=== PATIENT | female | born 1955 | race Caucasian/White ===

== ENCOUNTER 2017-06-07 11:24 | Inpatient (IN) | payer OTHER ==
[~2017-06-07] VITALS: Ht 160 cm; Wt 77.1 kg
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
[2017-06-07] MEDS ORDERED: HYDROCODONE/APAP 10/325MG 1 EA TABLET PO ONE (17:30)
[2017-06-07] MEDS ORDERED: ONDANSETRON 4 MG TAB.RAPDIS SL ONE (17:30)
[2017-06-07] MEDS ORDERED: ONDANSETRON 4 MG TAB.RAPDIS ONE (18:24)
[2017-06-07] MEDS ORDERED: HYDROCODONE/APAP 10/325MG 1 EA TABLET ONE (18:24)
--- NOTE | 2017-06-07 19:07 | NUR ---
DR. POE HAS BEEN PAGED
[2017-06-07 19:24] LABS: BASOPHILS % (AUTO) 0.6 % (0.0-2.0); EOSINOPHILS # (AUTO) 0.2 /CMM (0.0-0.7); HEMATOCRIT 45 % (33-45); HEMOGLOBIN 14.8 g/dL (11.5-14.8); LYMPHOCYTES # (AUTO) 3.1 /CMM (0.8-4.8); LYMPHOCYTES % (AUTO) 39.7 % (20.0-44.0); MEAN CORPUSCULAR HEMOGLOBIN 30 PG (26.0-33.0); MEAN CORPUSCULAR HGB CONC 33 g/dl (31.0-36.0); MEAN CORPUSCULAR VOLUME 90 fL (82-100); MONOCYTES # (AUTO) 0.5 /CMM (0.1-1.30); MONOCYTES % (AUTO) 6.8 % (2.0-12.0); NEUTROPHILS # (AUTO) 3.9 /CMM (1.8-8.9); NEUTROPHILS % (AUTO) 49.9 % (43.0-81.0); PLATELET COUNT (AUTO) 235 /CMM (150-450); RDW COEFFICIENT OF VARIATION 12.2 (11.5-15.0); RED BLOOD CELL COUNT(AUTO) 4.96 MIL/uL (4.0-5.2); WHITE BLOOD COUNT (AUTO) 7.7 K/uL (4.3-11.0)
[2017-06-07] MEDS ORDERED: ENOXAPARIN SODIUM 60 MG/0.6 ML DISP.SYRIN SQ ONE (19:30)
[2017-06-07 19:31] LABS: CALCIUM, SERUM 9.6 mg/dL (8.5-10.1); CREATININE 0.8 mg/dL (0.6-1.3); POTASSIUM 3.6 mmol/L (3.5-5.1)
[2017-06-07 19:36] LABS: INR 0.98 (0.87-1.13); PROTHROMBIN TIME 10.2 SECS (9.5-12.7)
[2017-06-07] MEDS ORDERED: ENOXAPARIN SODIUM 80 MG/0.8 ML DISP.SYRIN SQ ONE ×2 (19:43→20:00)
--- NOTE | 2017-06-07 19:50 | NUR ---
XRAY AT BS
[2017-06-07 19:53] LABS: ALANINE AMINOTRANSFERASE 30 U/L (12-78); ALBUMIN 4.2 g/dL (3.4-5.0); ALKALINE PHOSPHATASE 64 U/L (46-116); ASPARTATE AMINOTRANSFERASE 22 U/L (15-37); BILIRUBIN,DIRECT 0.1 mg/dL (0.0-0.2); BILIRUBIN,TOTAL 0.3 mg/dL (0.2-1.0); TOTAL PROTEIN, SERUM 7.9 g/dL (6.4-8.2)
--- NOTE | 2017-06-07 20:00 | NUR ---
EKG AT BS
[2017-06-07 20:03] LABS: TROPONIN I < 0.017 ng/mL (0.00-0.056)
--- NOTE | 2017-06-07 20:03 | NUR ---
Patient is resting comfortably in bed with eyes closed. Easily aroused. VSS
--- NOTE | 2017-06-07 21:30 | NUR ---
RN NOTES RECEIVED PATIENT FROM [facility]. PATIENT INQUIRED TO NURSE WITH REGARDS TO HER ROUTINE MEDICATIONS AND PAIN MEDICATION THE PATIENT'S HX INCLUDES CHRONIC BACK PAIN AND FIBROMYALGIA. REVIEWED PATIENT'S CHART AND FOLLOWED UP WITH ER WITH REGARDS TO THE PATIENT'S SNF RECORDS INCLUDING MEDICATION RECORDS. PER ER NURSE, THERE WAS NO PACKET THAT CAME WITH THE PATIENT, ONLY FACESHEET AND POLST. ATTEMPTED TO CALL [facility], NO ANSWER. SPOKE WITH PATIENT AND ASKED THE PATIENT IF SHE IS ABLE TO RECALL HER MEDICATIONS. PER PATIENT SHE IS TAKING GABAPENTIN AND LYRICA, UNKNOWN DOSE AND FREQUENCY. ALSO TAKING NORCO 10/325 Q4H PRN, MELATONIN 1MG HS, XANAX 1MG TID. PATIENT UNABLE TO RECALL OTHER MEDS. NOTIFIED DR. DEEPIKA MD TO PLACE ORDERS. Addendum: 06/08/17 at 0403 by SHERRIE NUNEZ RN WRONG TIME DOCUMENTED. CORRECTED DATE/TIME IS 06/07/17 AT 2230.
[2017-06-07 22:08] VITALS: BP 130/82
--- NOTE | 2017-06-07 22:08 | NUR ---
MOBILE SECURITY SPECIALIST NOTES PT RECEIVED FROM ER. PT C/O FOR PAIN IN ROBERT LEGS 03/13 PT MEDICATED IN ER. BLE REDNESS AND SWELLING NOTED. ROBERT LEGS COLD TO TOUCH. C/O OF PAIN TO TOUCH. PT POSITIVE FOR DVT ON L LEG. 22G IV IN L HAND ON SL. SKIN ASSESSMENT DONE. ORIENTED PT TO UNIT. PT IS RESTING IN BED ALL NEEDS ATTENDED. CALL LIGHT WITHIN REACH. WILL FOLLOW UP FOR ADMISSION ORDERS.
[2017-06-07] MEDS ORDERED: MELA1TAB15 PO (23:27)
[2017-06-07] MEDS ORDERED: ALPR1TAB2 PO (23:27)
[2017-06-07] MEDS ORDERED: HYDR-548 PO (23:27)
[2017-06-08] MEDS ORDERED: MAGNESIUM HYDROXIDE 30 ML UDC PO PRN
[2017-06-08] MEDS ORDERED: Medication Not On Formulary EA (Melatonin/Pyridoxine Hcl (Melatonin 1 Mg Tablet) 1 EACH) PO PRN
[2017-06-08] MEDS ORDERED: ONDANSETRON HCL/PF 4 MG/2 ML VIAL IVP PRN
[2017-06-08] MEDS ORDERED: ACETAMINOPHEN 325 MG TABLET PO PRN
[2017-06-08] MEDS ORDERED: ZOLPIDEM TARTRATE 5 MG TABLET PO PRN
[2017-06-08] MEDS ORDERED: HYDROCODONE/APAP 10/325MG 1 EA TABLET ONE (00:04)
[2017-06-08] MEDS ORDERED: ALPRAZOLAM 1 MG TABLET ONE (00:04)
[2017-06-08] MEDS: ALPRAZOLAM 1 MG TABLET PO SCH ×4 (00:16→17:48)
[2017-06-08] MEDS: HYDROCODONE/APAP 10/325MG 1 EA TABLET PO PRN ×4 (00:16→19:09)
[2017-06-08 04:00] VITALS: BP 111/64
[2017-06-08] MEDS ORDERED: MAGNESIUM CITRATE 296 ML BOTTLE PO PRN (07:00)
[2017-06-08] MEDS ORDERED: MAGNESIUM CITRATE 296 ML BOTTLE PO ONE (07:00)
--- NOTE | 2017-06-08 07:26 | NUR ---
RN CLOSING NOTES PT,NO ACUTE CHANGE IN CONDITION OVER NIGHT. ALL NEED ANTICIPATED AND MET. ALL DUE MEDS GIVEN AM LABS DRAWN. SAFETY AND COMFORT ENSURED, WILL ENDORSED.
[2017-06-08 07:40] LABS: BASOPHILS % (AUTO) 0.5 % (0.0-2.0); EOSINOPHILS # (AUTO) 0.2 /CMM (0.0-0.7); EOSINOPHILS % (AUTO) 2.3 % (0.0-6.0); HEMATOCRIT 42 % (33-45); HEMOGLOBIN 14.4 g/dL (11.5-14.8); LYMPHOCYTES # (AUTO) 2.9 /CMM (0.8-4.8); LYMPHOCYTES % (AUTO) 43.9 % (20.0-44.0); MEAN CORPUSCULAR HEMOGLOBIN 31 PG (26.0-33.0); MEAN CORPUSCULAR HGB CONC 34 g/dl (31.0-36.0); MEAN CORPUSCULAR VOLUME 90 fL (82-100); MONOCYTES # (AUTO) 0.5 /CMM (0.1-1.30); MONOCYTES % (AUTO) 7.4 % (2.0-12.0); NEUTROPHILS # (AUTO) 3.1 /CMM (1.8-8.9); NEUTROPHILS % (AUTO) 45.9 % (43.0-81.0); PLATELET COUNT (AUTO) 192 /CMM (150-450); RDW COEFFICIENT OF VARIATION 12.8 (11.5-15.0); RED BLOOD CELL COUNT(AUTO) 4.67 MIL/uL (4.0-5.2); WHITE BLOOD COUNT (AUTO) 6.7 K/uL (4.3-11.0)
[2017-06-08 08:00] VITALS: BP 119/67
[2017-06-08 08:06] LABS: CALCIUM, SERUM 9.6 mg/dL (8.5-10.1); CREATININE 0.8 mg/dL (0.6-1.3); PHOSPHORUS 4.1 mg/dL (2.5-4.9); POTASSIUM 3.6 mmol/L (3.5-5.1)
[2017-06-08] MEDS: POLYETHYLENE GLYCOL 3350 17 GM POWD.PACK PO SCH (08:15)
[2017-06-08] MEDS: PANTOPRAZOLE 40 MG TABLET.DR PO SCH (08:15)
[2017-06-08] MEDS: ENOXAPARIN SODIUM 80 MG/0.8 ML DISP.SYRIN SQ SCH ×2 (08:22→21:34)
[2017-06-08 08:28] LABS: THYROID STIMULATING HORMONE 1.816 uIU/mL (0.358-3.74)
[2017-06-08] MEDS: PREGABALIN 25 MG CAPSULE PO SCH ×2 (15:10→19:07)
[2017-06-08] MEDS: CYCLOBENZAPRINE 10 MG TABLET PO PRN ×2 (15:11→19:11)
[2017-06-08 16:00] VITALS: BP 128/75
--- NOTE | 2017-06-08 19:19 | NUR ---
RN NOTE PT CLAIMS SHE USED TO TAKE GAPAENTIN 300 MG TID, WANT THIS MEDICATION TO BE CONTINUED INSTEAD OF FLEXERIL.
[2017-06-08 20:00] VITALS: BP 121/73
[2017-06-08] MEDS: DOCUSATE SODIUM LIQ 100 MG/10 ML UDC NG SCH (21:34)
[2017-06-09] MEDS: HYDROCODONE/APAP 10/325MG 1 EA TABLET PO PRN ×3 (00:41→15:28)
[2017-06-09 04:00] VITALS: BP 110/63
[2017-06-09] MEDS: PANTOPRAZOLE 40 MG TABLET.DR PO SCH (06:27)
--- NOTE | 2017-06-09 07:00 | NUR ---
RN NOTES RECEIVED PT ON BED, A/Ox4, RESPIRATION EVEN AND UNLABORED, NO SOB NOTED, L HAND IV G 22 SITE CDI, L LEG WARM TO TOUCH , SR UP x3, CALL LIGHT WITHIN EASY REACH, BED LOCKED AND IN LOWEST POSITION, CONTINUE TO MONITOR.
[2017-06-09 07:45] LABS: BASOPHILS % (AUTO) 0.6 % (0.0-2.0); EOSINOPHILS # (AUTO) 0.1 /CMM (0.0-0.7); EOSINOPHILS % (AUTO) 2.3 % (0.0-6.0); HEMATOCRIT 41 % (33-45); HEMOGLOBIN 13.6 g/dL (11.5-14.8); LYMPHOCYTES # (AUTO) 2.3 /CMM (0.8-4.8); LYMPHOCYTES % (AUTO) 47.6 % (20.0-44.0); MEAN CORPUSCULAR HEMOGLOBIN 30 PG (26.0-33.0); MEAN CORPUSCULAR HGB CONC 34 g/dl (31.0-36.0); MEAN CORPUSCULAR VOLUME 90 fL (82-100); MONOCYTES # (AUTO) 0.3 /CMM (0.1-1.30); MONOCYTES % (AUTO) 6.9 % (2.0-12.0); NEUTROPHILS # (AUTO) 2.1 /CMM (1.8-8.9); NEUTROPHILS % (AUTO) 42.6 % (43.0-81.0); PLATELET COUNT (AUTO) 167 /CMM (150-450); RDW COEFFICIENT OF VARIATION 12.7 (11.5-15.0); WHITE BLOOD COUNT (AUTO) 4.8 K/uL (4.3-11.0)
[2017-06-09 07:53] LABS: CALCIUM, SERUM 9.4 mg/dL (8.5-10.1); CREATININE 0.9 mg/dL (0.6-1.3); POTASSIUM 3.6 mmol/L (3.5-5.1)
[2017-06-09 08:00] VITALS: BP 111/65
[2017-06-09] MEDS: POLYETHYLENE GLYCOL 3350 17 GM POWD.PACK PO SCH (08:20)
[2017-06-09] MEDS: ENOXAPARIN SODIUM 80 MG/0.8 ML DISP.SYRIN SQ SCH ×2 (08:21→21:07)
[2017-06-09] MEDS: ALPRAZOLAM 1 MG TABLET PO SCH ×3 (08:21→16:47)
[2017-06-09] MEDS: PREGABALIN 25 MG CAPSULE PO SCH ×2 (08:22→16:46)
--- NOTE | 2017-06-09 13:00 | NUR ---
RN NOTES PT STABLE , BMX1 AT THIS TIME , PT ON BED REST , NO DISTRESS NOTED .
[2017-06-09] MEDS: CYCLOBENZAPRINE 10 MG TABLET PO PRN (15:29)
[2017-06-09] MEDS: Z GUARD REMEDY 4 OZ OINT TP SCH (15:38)
[2017-06-09 16:00] VITALS: BP 113/67
--- NOTE | 2017-06-09 18:35 | NUR ---
RN NOTES RESPIRATION EVEN AND UNLABORED, ON RA , BMx1 AT THIS TIME , L HAND IV SITE CDI, SR UP x3, CALL LIGHT WITHIN EASY REACH, WILL ENDORSE TO GOLF PROFESSIONAL NURSE FOR NANDA .
[2017-06-09 20:00] VITALS: BP 103/69
--- NOTE | 2017-06-09 20:14 | NUR ---
RN INITIAL MS NOTES RECEIVED PT ON BED, A/Ox4, RESPIRATION EVEN AND UNLABORED, NO SOB NOTED, L HAND IV G 22 SITE CDI, L LEG WARM TO TOUCH , SR UP x3, CALL LIGHT WITHIN EASY REACH, BED LOCKED AND IN LOWEST POSITION, CONTINUE TO MONITOR.
[2017-06-09] MEDS: DOCUSATE SODIUM LIQ 100 MG/10 ML UDC NG SCH (21:00)
[2017-06-10 04:44] VITALS: BP 125/70
--- NOTE | 2017-06-10 06:20 | NUR ---
RN CLOSING MS NOTES ENDORSED PT ON BED, A/Ox4, RESPIRATION EVEN AND UNLABORED, NO SOB NOTED, L HAND IV G 22 SITE CDI, L LEG WARM TO TOUCH , SR UP x3, CALL LIGHT WITHIN EASY REACH, BED LOCKED AND IN LOWEST POSITION, CONTINUE TO MONITOR.
[2017-06-10 07:36] LABS: BASOPHILS % (AUTO) 0.3 % (0.0-2.0); EOSINOPHILS # (AUTO) 0.1 /CMM (0.0-0.7); EOSINOPHILS % (AUTO) 2.6 % (0.0-6.0); HEMATOCRIT 41 % (33-45); HEMOGLOBIN 13.8 g/dL (11.5-14.8); LYMPHOCYTES # (AUTO) 2.5 /CMM (0.8-4.8); LYMPHOCYTES % (AUTO) 42.7 % (20.0-44.0); MEAN CORPUSCULAR HEMOGLOBIN 31 PG (26.0-33.0); MEAN CORPUSCULAR HGB CONC 34 g/dl (31.0-36.0); MEAN CORPUSCULAR VOLUME 91 fL (82-100); MONOCYTES # (AUTO) 0.4 /CMM (0.1-1.30); MONOCYTES % (AUTO) 6.9 % (2.0-12.0); NEUTROPHILS # (AUTO) 2.8 /CMM (1.8-8.9); NEUTROPHILS % (AUTO) 47.5 % (43.0-81.0); PLATELET COUNT (AUTO) 170 /CMM (150-450); RDW COEFFICIENT OF VARIATION 12.8 (11.5-15.0); RED BLOOD CELL COUNT(AUTO) 4.47 MIL/uL (4.0-5.2); WHITE BLOOD COUNT (AUTO) 5.8 K/uL (4.3-11.0)
[2017-06-10 07:52] LABS: CREATININE 0.7 mg/dL (0.6-1.3)
[2017-06-10 08:00] VITALS: BP_SYST 116; BP_SYST 125; BP_DIAS 66; BP_DIAS 75
[2017-06-10] MEDS: POLYETHYLENE GLYCOL 3350 17 GM POWD.PACK PO SCH (08:26)
[2017-06-10] MEDS: HYDROCODONE/APAP 10/325MG 1 EA TABLET PO PRN ×3 (08:27→16:54)
[2017-06-10] MEDS: ALPRAZOLAM 1 MG TABLET PO SCH ×3 (08:27→16:53)
[2017-06-10] MEDS: PANTOPRAZOLE 40 MG TABLET.DR PO SCH (08:27)
[2017-06-10] MEDS: ENOXAPARIN SODIUM 80 MG/0.8 ML DISP.SYRIN SQ SCH ×2 (08:28→21:40)
[2017-06-10] MEDS: PREGABALIN 25 MG CAPSULE PO SCH ×2 (08:30→16:54)
[2017-06-10] MEDS: Z GUARD REMEDY 4 OZ OINT TP SCH (08:31)
[2017-06-10] MEDS: CYCLOBENZAPRINE 10 MG TABLET PO PRN (15:39)
[2017-06-10 16:00] VITALS: BP_SYST 102; BP_SYST 120; BP_DIAS 69
--- NOTE | 2017-06-10 17:21 | NUR ---
MS RN NOTE 8572: Received patient, awake, A/Ox4. On room air tolerated. No c/o discomfort at this time. Able to turn and reposition with minimal assist. On diaper, kept clean, warm and dry. LH PIV intact. On Lovenox for DVT. Patient aware for the POC. No critical lab result from AM labs. 1715: No any significant changes noted. [place] PRN given as ordered x3 on this shift for c/o generalized pain, effective per patient.
[2017-06-10 20:00] VITALS: BP 123/66
[2017-06-10] MEDS: DOCUSATE SODIUM LIQ 100 MG/10 ML UDC NG SCH (21:38)
[2017-06-11 00:46] VITALS: BP 104/49
--- NOTE | 2017-06-11 07:10 | NUR ---
RN INITIAL NOTE PATIENT RECEIVED IN BED RESTING. EASILY AROUSED. ALERT AND ORIENTED, ABLE TO MAKE NEEDS KNOWN. RESPIRATIONS ARE EVEN AND UNLABORED. NO S/S OF RESPIRATORY DISTRESS OR SOB. SATING WELL ON ROOM AIR. SKIN IS WARM AND DRY TO TOUCH. IV SITE FLUSHED, PATENT. SAFETY PRECAUTIONS IMPLEMENTED, BED IN LOCKED, LOW POSITION WITH TWO SIDE RAILS UP. CALL LIGHT AND BELONGINGS WITHIN EASY REACH. WILL CONTINUE TO MONITOR.
[2017-06-11] MEDS: CYCLOBENZAPRINE 10 MG TABLET PO PRN ×2 (07:21→19:53)
[2017-06-11] MEDS: PANTOPRAZOLE 40 MG TABLET.DR PO SCH (07:21)
[2017-06-11] MEDS: HYDROCODONE/APAP 10/325MG 1 EA TABLET PO PRN ×3 (07:22→19:53)
[2017-06-11 08:00] VITALS: BP 142/78
[2017-06-11] MEDS: ENOXAPARIN SODIUM 80 MG/0.8 ML DISP.SYRIN SQ SCH ×3 (08:45→21:28)
[2017-06-11] MEDS: Z GUARD REMEDY 4 OZ OINT TP SCH (08:46)
[2017-06-11] MEDS: POLYETHYLENE GLYCOL 3350 17 GM POWD.PACK PO SCH (08:46)
[2017-06-11] MEDS: ALPRAZOLAM 1 MG TABLET PO SCH ×3 (08:47→15:54)
[2017-06-11] MEDS: PREGABALIN 25 MG CAPSULE PO SCH ×2 (08:47→15:54)
[2017-06-11 16:00] VITALS: BP 182/89
--- NOTE | 2017-06-11 18:48 | NUR ---
RN CLOSING NOTE CARRIED OUT ALL MD ORDERS. PATIENTS NEEDS ANTICIPATED. PATIENT KEPT CLEAN AND DRY. SAFETY PRECAUTIONS IN PLACE AT ALL TIMES. WILL GIVE REPORT TO PM RN FOR NANDA.
--- NOTE | 2017-06-11 19:20 | NUR ---
RN OPENING NOTES RECEIVED PATIENT AND REPORT TO MORNING SHIFT. PATIENT IS ALERT AND ORIENTED X 4. STABLE. SAFETY MEASURES PROVIDED. LISTENED TO PATIENT'S NEEDS. CALL LIGHT WITHIN REACH.
[2017-06-11 20:00] VITALS: BP 117/77
[2017-06-11] MEDS: DOCUSATE SODIUM LIQ 100 MG/10 ML UDC NG SCH (21:26)
[2017-06-12 04:00] VITALS: BP 124/76
--- NOTE | 2017-06-12 07:19 | NUR ---
RN CLOSING NTOES GIVEN REPORT AND CARE OF PATIENT TO NANCY SANZ. PATIENT IS STABLE.
--- NOTE | 2017-06-12 07:30 | NUR ---
RN OPENING NOTES RECEIVED PT. IN BED AWAKE, A&OX4. BREATHING UNLABORED, AND EVENLY ON ROOM AIR. NO S/S OF ACUTE DISTRESS. IV SITE IS INTACT AND PATENT ON LEFT HAND. BED IS IN LOWEST, AND LOCKED POSITION. INSTRUCTED PT. TO USE CALL LIGHT FOR ASSISTANCE, ALL NEEDS MET, AND WILL CONTINUE TO ASSESS.
[2017-06-12 08:00] VITALS: BP 125/73
[2017-06-12] MEDS: POLYETHYLENE GLYCOL 3350 17 GM POWD.PACK PO SCH (08:17)
[2017-06-12] MEDS: PANTOPRAZOLE 40 MG TABLET.DR PO SCH (08:17)
[2017-06-12] MEDS: PREGABALIN 25 MG CAPSULE PO SCH (08:17)
[2017-06-12] MEDS: ALPRAZOLAM 1 MG TABLET PO SCH ×2 (08:18→13:00)
[2017-06-12] MEDS: HYDROCODONE/APAP 10/325MG 1 EA TABLET PO PRN ×2 (08:19→13:01)
[2017-06-12] MEDS: ENOXAPARIN SODIUM 80 MG/0.8 ML DISP.SYRIN SQ SCH (08:23)
[2017-06-12] MEDS: Z GUARD REMEDY 4 OZ OINT TP SCH (08:25)
--- NOTE | 2017-06-12 13:00 | NUR ---
RN NOTES REPORT WAS GIVEN TO YVON MCGEE FROM [facility].
--- NOTE | 2017-06-12 13:46 | NUR ---
RN OPENING NOTES RECEIVED PT. IN BED AWAKE, A&OX4. BREATHING UNLABORED, AND EVENLY ON ROOM AIR. NO S/S OF ACUTE DISTRESS. IV SITE IS INTACT AND PATENT ON LEFT HAND. BED IS IN LOWEST, AND LOCKED POSITION. INSTRUCTED PT. TO USE CALL LIGHT FOR ASSISTANCE, ALL NEEDS MET, AND WILL CONTINUE TO ASSESS. Addendum: 06/12/17 at 1349 by NANCY HUMPHREYS RN RN OPENING NOTES IS AN ERROR.
--- NOTE | 2017-06-12 13:49 | NUR ---
IMMIGRATION MANAGER NOTE PT. WAS DISCHARGED IN MEDICALLY STABLE CONDITION AND TAKEN BY AMBULANCE TO [facility]. DISCHARGE INSTRUCTIONS, WITH EDUCATION WAS PROVIDE, PT. VERBALIZED UNDERSTANDING, AND DISCHARGE PAPERS WERE SIGNED. PICTURES TAKEN OF SKIN AND PLACED IN CHART. BELONGING LIST WAS CHECKED, AND SIGNED. IV AND ID BAND WAS REMOVED WITHOUT COMPLICATIONS. PT. WAS ASSISTED WITH GETTING DRESSED. ALL QUESTIONS ANSWERED.
== END 2017-06-12 13:33 | DRG 816 ==
LOC: EDBD 11:31 → ER 11:31 → MEDSG1 21:16
PROVIDERS: ADMIT Internal Medicine; ATTEND Internal Medicine
DX: T59.811A Toxic effect of smoke, accidental (unintentional), initial encounter (principal); J96.00 Acute respiratory failure, unspecified whether with hypoxia or hypercapnia; I82.412 Acute embolism and thrombosis of left femoral vein; D68.59 Other primary thrombophilia; J70.5 Respiratory conditions due to smoke inhalation; F11.20 Opioid dependence, uncomplicated; M79.7 Fibromyalgia; E03.9 Hypothyroidism, unspecified; I10 Essential (primary) hypertension; Z79.01 Long term (current) use of anticoagulants; Z68.30 Body mass index [BMI] 30.0-30.9, adult; Y92.129 Unspecified place in nursing home as the place of occurrence of the external cause; X08.8XXA Exposure to other specified smoke, fire and flames, initial encounter; F41.9 Anxiety disorder, unspecified; G89.4 Chronic pain syndrome; M51.16 Intervertebral disc disorders with radiculopathy, lumbar region; Z79.899 Other long term (current) drug therapy; K56.41 Fecal impaction; E66.9 Obesity, unspecified; F17.200 Nicotine dependence, unspecified, uncomplicated; M51.37 Other intervertebral disc degeneration, lumbosacral region; Z98.890 Other specified postprocedural states
CPT/HCPCS: 36415; 71010-TC; 80048-TC; 80061-TC; 80076-TC; 83735-TC; 84100-TC; 84443-TC; 84484-TC; 85025-TC; 85730-TC; 87081-TC; 93970-TC; A4606; J1650; Q0162; Z7610

== ENCOUNTER 2018-10-29 00:50 | Emergency (ER) | payer OTHER ==
[~2018-10-29] VITALS: Ht 160 cm; Wt 73.5 kg
[~2018-10-29 00:50] MED LIST: ALPR1TAB2 PO; HYDR-4354 PO; MELA1TAB15 PO
--- NOTE | 2018-10-29 01:30 | NUR ---
EVELYNAMBULIFE 760 FROM [facility], C/O BILAT LEG PAIN, SWELLING X 2 DAYS, PLACED ON ER BED 1, AWAITING TO BE SEEN BY ER MD TEJADA.
--- NOTE | 2018-10-29 02:59 | NUR ---
CHRISNZ CALLED SHERMAN 0430/0500. TRIP#[id number]
[2018-10-29] MEDS ORDERED: HYDROCODONE/APAP 5/325MG 1 EACH TABLET PO ONE (03:00)
[2018-10-29] MEDS ORDERED: HYDROCODONE/APAP 5/325MG 1 EACH TABLET ONE (03:09)
--- NOTE | 2018-10-29 04:29 | NUR ---
pt resting in bed asleep, easily arouseable, denies any pain, eta 0430.
--- NOTE | 2018-10-29 05:08 | NUR ---
pt picked up by [facility], paper work taken with pt.
[2018-10-29 05:10] VITALS: BP 120/69
[2018-11-22] MEDS ORDERED: GABA300C PO (13:28)
== END 2018-10-29 05:11 ==
LOC: ER 00:57
DX: G62.9 Polyneuropathy, unspecified (principal); M79.7 Fibromyalgia; I10 Essential (primary) hypertension; F41.9 Anxiety disorder, unspecified; E03.9 Hypothyroidism, unspecified; E78.00 Pure hypercholesterolemia, unspecified; Z98.890 Other specified postprocedural states; Z79.899 Other long term (current) drug therapy

== ENCOUNTER 2018-11-18 23:33 | Inpatient (IN) | payer OTHER ==
[~2018-11-18] VITALS: Ht 160 cm; Wt 86.2 kg
--- NOTE | 2018-11-18 23:50 | NUR ---
BIBPA FROM [facility], C/O BILAT LE EDEMA X 1 MONTH, USUALLY ABLE TO AMBULATE WITH WALKER, NOW NON AMBULATORY, VS STABLE, SEEN AND EVAL DONE BY ER MD ANDERSEN, ON BED 11, ORDERS ENTERED.
[2018-11-19] MEDS ORDERED: oxyCODONE/APAP (5/325 MG) 1 UDTAB TABLET PO ONE
[2018-11-19 00:24] LABS: BASOPHILS # (AUTO) 0.1 /CMM (0.0-0.2); BASOPHILS % (AUTO) 1.1 % (0.0-2.0); EOSINOPHILS % (AUTO) 2.8 % (0.0-6.0); HEMATOCRIT 42 % (33-45); HEMOGLOBIN 14.5 g/dL (11.5-14.8); LYMPHOCYTES # (AUTO) 3.1 /CMM (0.8-4.8); LYMPHOCYTES % (AUTO) 39.5 % (20.0-44.0); MEAN CORPUSCULAR HGB CONC 34 g/dl (31.0-36.0); MEAN CORPUSCULAR VOLUME 92 fL (82-100); MONOCYTES # (AUTO) 0.6 /CMM (0.1-1.30); MONOCYTES % (AUTO) 7.6 % (2.0-12.0); NEUTROPHILS # (AUTO) 3.9 /CMM (1.8-8.9); PLATELET COUNT (AUTO) 194 /CMM (150-450); RED BLOOD CELL COUNT(AUTO) 4.58 MIL/uL (4.0-5.2); WHITE BLOOD COUNT (AUTO) 7.9 K/uL (4.3-11.0)
[2018-11-19 00:35] LABS: D-DIMER 0.19 mg/L(FEU (0.17-0.50)
[2018-11-19 00:40] LABS: ALANINE AMINOTRANSFERASE 44 U/L (12-78); ALBUMIN 4.2 g/dL (3.4-5.0); ALKALINE PHOSPHATASE 78 U/L (46-116); ASPARTATE AMINOTRANSFERASE 26 U/L (15-37); B-TYPE NATRIURETIC PEPTIDE 44 PG/ML (0-125); BILIRUBIN,DIRECT 0.1 mg/dL (0.0-0.2); BILIRUBIN,TOTAL 0.3 mg/dL (0.2-1.0); CALCIUM, SERUM 9.5 mg/dL (8.5-10.1); CARBON DIOXIDE 29 mmol/L (21-32); CHLORIDE 103 mmol/L (98-107); GLUCOSE 109 mg/dL (74-106); POTASSIUM 3.8 mmol/L (3.5-5.1); SODIUM SERUM 141 mmol/L (136-145); TOTAL PROTEIN, SERUM 7.7 g/dL (6.4-8.2); UREA NITROGEN, BLOOD 24 mg/dL (7-18)
[2018-11-19] MEDS ORDERED: IOHEXOL-350 100 ML VIAL IV ONE (00:51)
[2018-11-19] MEDS ORDERED: CT SWABBABLE VALVE TRANS SET 1 EA INFUS.SET MC ONE (00:51)
[2018-11-19] MEDS ORDERED: IV NS 0.9% 250 ML IV ONE (00:52)
[2018-11-19] MEDS ORDERED: oxyCODONE/APAP (5/325 MG) 1 UDTAB TABLET ONE (00:56)
--- NOTE | 2018-11-19 01:13 | NUR ---
BILAT LE DUPLEX DONE AT BED SIDE.
--- NOTE | 2018-11-19 02:40 | NUR ---
PT TAKEN FOR CTA, BACK, AWAITING RESULTS.
[2018-11-19] MEDS ORDERED: ENOXAPARIN SODIUM 80 MG/0.8 ML DISP.SYRIN SQ ONE (03:30)
[2018-11-19] MEDS ORDERED: ENOXAPARIN SODIUM 60 MG/0.6 ML DISP.SYRIN SQ ONE (03:30)
--- NOTE | 2018-11-19 04:00 | NUR ---
PT ASLEEP ABLE TO WAKE UP, DENIES ANY PAIN OR SOB, PENDING ADMISSION.
[2018-11-19] MEDS ORDERED: IV NS 0.9% 1,000 ML IV PRN (06:23)
[2018-11-19] MEDS ORDERED: MAG HYDROX/AL HYDROX/SIMETH 30 ML UDC PO PRN (06:30)
[2018-11-19] MEDS ORDERED: ACETAMINOPHEN 325 MG TABLET PO PRN (06:30)
[2018-11-19] MEDS ORDERED: ZOLPIDEM TARTRATE 5 MG TABLET PO PRN (06:30)
[2018-11-19] MEDS ORDERED: MAGNESIUM HYDROXIDE 30 ML UDC PO PRN (06:30)
[2018-11-19] MEDS ORDERED: ONDANSETRON HCL/PF 4 MG/2 ML VIAL IVP PRN (06:30)
[2018-11-19] MEDS ORDERED: HYDROMORPHONE INJ 2 MG/ML DISP.SYRIN IV PRN (06:30)
[2018-11-19] MEDS ORDERED: Z GUARD REMEDY 2 OZ OINT TP PRN (06:30)
[2018-11-19 06:43] LABS: PHOSPHORUS 3.6 mg/dL (2.5-4.9)
--- NOTE | 2018-11-19 07:18 | NUR ---
REPORT GIVEN TO JAGRUTI SANZ.
[2018-11-19] MEDS ORDERED: OXYC-128 PO (07:31)
[2018-11-19] MEDS ORDERED: FENO145T GT (07:31)
[2018-11-19] MEDS ORDERED: NALO4SPR NS (07:31)
[2018-11-19] MEDS ORDERED: GABA-534 PO (07:31)
[2018-11-19] MEDS ORDERED: QUIN1TAB3 PO (07:31)
[2018-11-19] MEDS ORDERED: MELA3TAB PO (07:31)
[2018-11-19] MEDS ORDERED: ALBU0.633 IH (07:31)
[2018-11-19] MEDS ORDERED: ESCI20TA PO (07:31)
[2018-11-19] MEDS ORDERED: MULT-447 PO (07:31)
[2018-11-19] MEDS ORDERED: CALC1TAB91 PO (07:31)
[2018-11-19] MEDS ORDERED: ALPR1TAB2 PO (07:31)
[2018-11-19] MEDS ORDERED: LEVO25TA7 PO (07:31)
[2018-11-19] MEDS ORDERED: IBUP-1953 PO (07:31)
[2018-11-19] MEDS ORDERED: BACL5TAB PO (07:31)
[2018-11-19] MEDS ORDERED: PREG50CA PO (07:31)
[2018-11-19] MEDS ORDERED: BISA-79 PO (07:31)
[2018-11-19] MEDS ORDERED: CHOL200026 PO (07:31)
[2018-11-19] MEDS ORDERED: SENN-18 PO (07:31)
[2018-11-19] MEDS ORDERED: APIX5TAB PO (07:31)
[2018-11-19] MEDS: ALPRAZOLAM 1 MG TABLET PO SCH ×2 (08:47→16:56)
--- NOTE | 2018-11-19 08:50 | NUR ---
MS MICROCOMPUTER SUPPORT SPECIALIST NOTES RECEIVED PT TRANSPORTED VIA GURNEY BY 1 RN ASSIST. PT A/O X3-4. TOLERATING RA, WITH NO ACUTE RESPIRATORY DISTRESS. VS BP 115/79, BRADYCARDIC AT 48-53 BPM. PT DENIES CHEST PAIN. PT ALSO DENIES N/V AND ABDOMINAL DISCOMFORT. PT STATES SHE HAS PAIN ON BOTH LEGS, AND HAD PAIN MEDICINE HOURS AGO. BLE NON PITTING EDEMA NOTED. SKIN INTACT. PIV TO RFA G20, FLUSHED WITH NS, INTACT AND OPERATIONAL. ADMISSION INFOS AND HX PROVIDED BY PT. PT STATED SHE WAS AMBULATORY WITH WALKER BEFORE BUT FOR A WEEK AND A HALF STARTED HER SEVERE WEAKNESS ON BLE DUE TO SWELLING. HOB KEPT ELEVATED. PT KEPT COMFORTABLE, CLEAN AND DRY. CALL LIGHT AND FLUID KEPT WITHIN REACH. WILL CONTINUE PLAN OF CARE.
[2018-11-19] MEDS ORDERED: ALPRAZOLAM 1 MG TABLET PO SCH ×2 (09:00→17:00)
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
[2018-11-19] MEDS: HYDROCODONE/APAP 5/325MG 1 EACH TABLET PO PRN ×2 (11:58→17:12)
[2018-11-19] MEDS ORDERED: ENOXAPARIN SODIUM 80 MG/0.8 ML DISP.SYRIN SQ SCH (15:00)
[2018-11-19 16:00] VITALS: BP 103/74
[2018-11-19] MEDS ORDERED: SENNOSIDES 8.6 MG TABLET PO PRN (17:00)
[2018-11-19] MEDS ORDERED: BISACODYL (5 MG) 5 MG TABLET.DR PO PRN (17:00)
[2018-11-19] MEDS ORDERED: IBUPROFEN 400 MG TABLET PO PRN (17:00)
[2018-11-19] MEDS: BACLOFEN (10 MG) 10 MG TABLET PO SCH (17:45)
[2018-11-19] MEDS: CALCIUM CARB 250MG /VITAMIN D 1 UDTAB PO SCH (17:45)
[2018-11-19] MEDS: GABAPENTIN 300 MG CAPSULE PO SCH (17:45)
[2018-11-19] MEDS: PREGABALIN 25 MG CAPSULE PO SCH (17:45)
--- NOTE | 2018-11-19 18:28 | NUR ---
MS RN NOTES XANAX SCHEDULED AT 1700 WAS SCANNED AND GIVEN AT 1710. RN WASN'T ABLE TO SAVE IT DUE TO IT WAS DISCONTINUED AT 1711. PT TOOK XANAX SCHEDULED AT 1700 AT 1710. WILL ENDORSE TO INCOMING NIGHT NURSE.
--- NOTE | 2018-11-19 18:43 | NUR ---
MS RN CLOSING NOTES PT REMAINS RESTING IN BED. A/O X3-4. TOLERATING RA, WITH NO ACUTE RESPIRATORY DISTRESS. PT DENIES ANY PAIN OR DISCOMFORT AT THIS MOMENT. IVF NS AT 75ML/HR TO RFA G20, INTACT AND FLUID INFUSING WELL. PT ABLE TO MAKE NEEDS KNOWN. PROVIDED ALL CARE AND NEEDS ATTENDED. HOB KEPT ELEVATED. PT KEPT COMFORTABLE, CLEAN AND DRY. PT'S BED KEPT IN LOWEST, LOCKED POSITION WITH SR X2. CALL LIGHT AND FLUID KEPT WITHIN REACH. WILL ENDORSE TO INCOMING NIGHT NURSE TO NANDA.
--- NOTE | 2018-11-19 19:15 | NUR ---
MS RN NOTES RECEIVED PT IN BED AND AWAKE RESTING IN BED. A/O X4 AND ABLE TO MAKE NEEDS KNOWN. RESPIRATIONS EVEN AND UNLABORED WITH NO S/S OF ACUTE DISTRESS OR SOB NOTED. PT DENIES ANY PAIN OR DISCOMFORT AT THIS TIME. IVF NS AT 75ML/HR TO RFA G20, PATENT AND INTACT. SAFETY MEASURES IN PLACE WITH BED IN LOWEST LOCKED POSITION WITH SIDE RAILS UP X2. CALL LIGHT WITHIN REACH. WILL CONTINUE TO MONITOR.
[2018-11-19 20:00] VITALS: BP 109/62
[2018-11-19] MEDS: FENOFIBRATE NANOCRYS (145 MG) 145 MG TABLET PO SCH (21:37)
[2018-11-20] MEDS: oxyCODONE/APAP (5/325 MG) 1 UDTAB TABLET PO PRN ×3 (05:59→22:34)
[2018-11-20 07:08] LABS: BASOPHILS # (AUTO) 0.1 /CMM (0.0-0.2); BASOPHILS % (AUTO) 1.2 % (0.0-2.0); HEMATOCRIT 41 % (33-45); HEMOGLOBIN 14.1 g/dL (11.5-14.8); LYMPHOCYTES # (AUTO) 1.9 /CMM (0.8-4.8); LYMPHOCYTES % (AUTO) 40.1 % (20.0-44.0); MEAN CORPUSCULAR HGB CONC 34 g/dl (31.0-36.0); MEAN CORPUSCULAR VOLUME 92 fL (82-100); MONOCYTES # (AUTO) 0.3 /CMM (0.1-1.30); MONOCYTES % (AUTO) 6.6 % (2.0-12.0); NEUTROPHILS # (AUTO) 2.3 /CMM (1.8-8.9); NEUTROPHILS % (AUTO) 49.1 % (43.0-81.0); PLATELET COUNT (AUTO) 153 /CMM (150-450); RED BLOOD CELL COUNT(AUTO) 4.48 MIL/uL (4.0-5.2); WHITE BLOOD COUNT (AUTO) 4.8 K/uL (4.3-11.0)
[2018-11-20 07:47] LABS: ALBUMIN 3.7 g/dL (3.4-5.0); BILIRUBIN,TOTAL 0.4 mg/dL (0.2-1.0); CALCIUM, SERUM 9.5 mg/dL (8.5-10.1); CREATININE 0.8 mg/dL (0.6-1.3); POTASSIUM 3.7 mmol/L (3.5-5.1); TOTAL PROTEIN, SERUM 6.8 g/dL (6.4-8.2)
--- NOTE | 2018-11-20 07:57 | NUR ---
MS RN NOTES PT IN BED SLEEPING BUT EASILY AWOKEN VERBALLY OR BY TOUCH. A/O X4 AND ABLE TO MAKE NEEDS KNOWN. RESPIRATIONS EVEN AND UNLABORED WITH NO S/S OF ACUTE DISTRESS OR SOB NOTED THROUGHOUT SHIFT. PT DENIES ANY PAIN OR DISCOMFORT AT THIS TIME. IVF NS AT 75ML/HR TO RFA G20, PATENT AND INTACT. SAFETY MEASURES IN PLACE WITH BED IN LOWEST LOCKED POSITION WITH SIDE RAILS UP X2. CALL LIGHT WITHIN REACH. WILL ENDORSE TO ONCOMING NURSE FOR NANDA.
[2018-11-20 08:00] VITALS: BP 133/84
--- NOTE | 2018-11-20 08:00 | NUR ---
MS RN OPENING NOTES Received Patient comfortable and resting in bed. A/O x 4. VS stable with no acute distress. Breathing even and unlabored on room air with no respiratory distress. Denies pain at this time. 20g PIV on RIGHT FOREARM clean, dry, intact and flushing well. IVF NS running at 75ml/hr. Skin intact. BLE edema noted. Safety precautions in place. Bed locked and set to lowest position with side rails x 2 up. All needs rendered at this time. Will continue to monitor.
[2018-11-20] MEDS: LEVOTHYROXINE SODIUM 25 MCG TABLET PO SCH (09:50)
[2018-11-20] MEDS: APIXABAN 5 MG TABLET PO SCH ×2 (09:50→16:12)
[2018-11-20] MEDS: ESCITALOPRAM OXALATE (10 MG) 10 MG TABLET PO SCH (09:51)
[2018-11-20] MEDS: CHOLECALCIFEROL 1,000 UNIT TABLET (VIT D3) PO SCH (09:51)
[2018-11-20] MEDS: BACLOFEN (10 MG) 10 MG TABLET PO SCH ×3 (09:51→16:12)
[2018-11-20] MEDS: PREGABALIN 25 MG CAPSULE PO SCH ×2 (09:51→16:12)
[2018-11-20] MEDS: GABAPENTIN 300 MG CAPSULE PO SCH ×2 (09:51→16:12)
[2018-11-20] MEDS: MULTIVITAMINS,THERAGRAN 1 UDTAB TABLET PO SCH (09:51)
[2018-11-20] MEDS: CALCIUM CARB 250MG /VITAMIN D 1 UDTAB PO SCH ×2 (09:52→16:13)
[2018-11-20] MEDS: ALPRAZOLAM 1 MG TABLET PO SCH ×2 (09:52→16:13)
[2018-11-20 16:00] VITALS: BP 130/71
--- NOTE | 2018-11-20 19:29 | NUR ---
MS RN CLOSING NOTES Patient comfortable and resting in bed. A/O x 4. VS stable with no acute distress. Breathing even and unlabored on room air with no respiratory distress. Denies pain at this time. 20g PIV on RIGHT FOREARM clean, dry, intact and flushing well. IVF NS running at 75ml/hr. Skin intact. BLE edema noted. Safety precautions in place. Bed locked and set to lowest position with side rails x 2 up. All needs rendered at this time. Will endorse plan of care to oncoming shift.
--- NOTE | 2018-11-20 19:30 | NUR ---
MSRN FULLY AWAKE, RESTING QUIETLY. PLAN OF CARE AND MEDICATION REGIMEN DISCUSSED WITH PATIENT, WELL UNDERSTOOD. ASSESSED FOR PAIN, TOLERABLE FOR NOW. STATED WILL CALL IF NEEDED. BEDREST AND SAFETY PRECAUTIONS EMPHASIZED, WELL UNDERSTOOD. NO NEEDS AT THIS TIME, CLOSELY WATCHED.
[2018-11-20 20:00] VITALS: BP 109/65
--- NOTE | 2018-11-20 22:30 | NUR ---
MSRN VERBALIZES ROBERT FEET PAIN REQUESTED PERCOCET, 1 TAB ADMINISTERED. CBR FOR NOW. ALL NEEDS ATTENDED.
[2018-11-20] MEDS: FENOFIBRATE NANOCRYS (145 MG) 145 MG TABLET PO SCH (22:31)
--- NOTE | 2018-11-21 00:44 | NUR ---
PREMA SLEEPING OF THIS TIME, CLOSELY WATCHED
[2018-11-21] MEDS: oxyCODONE/APAP (5/325 MG) 1 UDTAB TABLET PO PRN ×3 (06:01→22:04)
--- NOTE | 2018-11-21 06:23 | NUR ---
MSRN HL LEAKING, DISLODGED. REFUSED TO BE RESTARTED AT THIS TIME. LABS DRAWN. WAS MEDICATED FOR ROBERT FOOT PAIN WITH PERCOCET 1 TAB.
[2018-11-21 06:48] LABS: CALCIUM, SERUM 8.6 mg/dL (8.5-10.1); CREATININE 0.7 mg/dL (0.6-1.3)
--- NOTE | 2018-11-21 07:32 | NUR ---
MS/RN OPENING NOTE PATIENT IN BED IN STABLE CONDITION. A/O X 3. NO SIGNS OF ACUTE DISTRESS. NO COMPLAIN OF PAIN OR DISCOMFORT AT THIS TIME. PER REVENUE SETTLEMENTS ADMINISTRATOR RN, PATIENT REFUSED IV ACCESS, SECONDARY TO PRESENT IV LEAKING AND BLEEDING. NO BLEEDING NOTED AT THIS TIME. ALL NEEDS ATTENDED TO. CALL LIGHT WITHIN REACH. WILL CONTINUE TO MONITOR TO ENSURE SAFETY.
[2018-11-21 08:00] VITALS: BP 134/74
[2018-11-21] MEDS: CHOLECALCIFEROL 1,000 UNIT TABLET (VIT D3) PO SCH (09:11)
[2018-11-21] MEDS: PREGABALIN 25 MG CAPSULE PO SCH ×2 (09:11→16:35)
[2018-11-21] MEDS: MULTIVITAMINS,THERAGRAN 1 UDTAB TABLET PO SCH (09:12)
[2018-11-21] MEDS: ALPRAZOLAM 1 MG TABLET PO SCH ×2 (09:12→16:35)
[2018-11-21] MEDS: CALCIUM CARB 250MG /VITAMIN D 1 UDTAB PO SCH ×2 (09:12→16:35)
[2018-11-21] MEDS: BACLOFEN (10 MG) 10 MG TABLET PO SCH ×3 (09:12→16:35)
[2018-11-21] MEDS: LEVOTHYROXINE SODIUM 25 MCG TABLET PO SCH (09:13)
[2018-11-21] MEDS: ESCITALOPRAM OXALATE (10 MG) 10 MG TABLET PO SCH (09:13)
[2018-11-21] MEDS: GABAPENTIN 300 MG CAPSULE PO SCH ×2 (09:13→16:35)
[2018-11-21] MEDS: APIXABAN 5 MG TABLET PO SCH ×2 (09:14→16:34)
--- NOTE | 2018-11-21 10:30 | NUR ---
MS/RN SEEN BY LIDIA REYNOLDS AND NOTIFIED PATIENT REFUSED IV ACCESS AND HAS ORDER FOR IV FLUIDS BUN NOTED 26 COMPARE TO YESTERDAY GETTING BETTER. PER LIDIA REYNOLDS PLEASE ENCOURAGE PATIENT TO DRINK LOT OF PO FLUIDS. IV FLUIDS ON HOLD AT THIS TIME AND CONTINUE PO FLUIDS. PATIENT NOTIFIED. WILL CONTINUE TO MONITOR TO ENSURE SAFETY.
[2018-11-21 16:00] VITALS: BP 120/72
--- NOTE | 2018-11-21 18:00 | NUR ---
MS/RN PATIENT SEEN BY DR JOSH ORR WITH ORDERS TO CHANGE GABAPENTIN 600MG TO TID FROM BID. PATIENT AWARE.
--- NOTE | 2018-11-21 18:28 | NUR ---
MS/RN CLOSING NOTE PATIENT IN BED IN STABLE CONDITION. A/O X 4. NO SIGNS OF ACUTE DISTRESS. NO COMPLAIN OF PAIN OR DISCOMFORT. ALL NEEDS ATTENDED TO. CALL LIGHT WITHIN REACH. WILL ENDORSE TO NEXT SHIFT FOR CONTINUITY OF CARE.
--- NOTE | 2018-11-21 19:30 | NUR ---
MSRN ASLEEP. APPEARS COMFORTABLE. CLOSELY WATCHED.
[2018-11-21 20:00] VITALS: BP 117/69
--- NOTE | 2018-11-21 22:00 | NUR ---
MSRN DUE MEDS ADMNISTERED, VERBALIZES ROBERT FOOT PAIN, NORCO 1 TAB PO GIVEN. REMINDED TO CALL STAFF FOR FURTHER DISCOMFORTS. CLOSELY WATCHED.
[2018-11-21] MEDS: FENOFIBRATE NANOCRYS (145 MG) 145 MG TABLET PO SCH (22:02)
--- NOTE | 2018-11-21 23:15 | NUR ---
MSRN ENDORSED TO RN FOR CONTINUITY OF CARE
--- NOTE | 2018-11-21 23:16 | NUR ---
MS RN NOTES ASSUME CARE OF THIS PATIENT, ASLEEP ON BED COMFORTABLY. WILL CONTINUE TO MONITOR.
[2018-11-22] MEDS: oxyCODONE/APAP (5/325 MG) 1 UDTAB TABLET PO PRN ×3 (04:55→18:11)
--- NOTE | 2018-11-22 06:57 | NUR ---
MS RN CLOSING NOTES Patient asleep at this time. No new unusualities noted, afebrile the whole shift. All nursing needs attended. On fall precaution. Call light within easy reach. Endorsed to the next shift.
--- NOTE | 2018-11-22 07:30 | NUR ---
RN MS NOTES PT IN BED, AWAKE, ALERT AND ORIENTED, NO COMPLAINT OF PAIN AT THIS TIME, RESPIRATIONS NORMAL, CALL LIGHT WITHIN REACH.
[2018-11-22 07:31] LABS: BASOPHILS # (AUTO) 0.1 /CMM (0.0-0.2); EOSINOPHILS % (AUTO) 2.6 % (0.0-6.0); HEMATOCRIT 42 % (33-45); HEMOGLOBIN 14.2 g/dL (11.5-14.8); LYMPHOCYTES # (AUTO) 2.3 /CMM (0.8-4.8); LYMPHOCYTES % (AUTO) 37.7 % (20.0-44.0); MEAN CORPUSCULAR HGB CONC 34 g/dl (31.0-36.0); MEAN CORPUSCULAR VOLUME 93 fL (82-100); MONOCYTES # (AUTO) 0.4 /CMM (0.1-1.30); MONOCYTES % (AUTO) 6.5 % (2.0-12.0); NEUTROPHILS # (AUTO) 3.2 /CMM (1.8-8.9); NEUTROPHILS % (AUTO) 52.2 % (43.0-81.0); PLATELET COUNT (AUTO) 167 /CMM (150-450); RED BLOOD CELL COUNT(AUTO) 4.52 MIL/uL (4.0-5.2); WHITE BLOOD COUNT (AUTO) 6.1 K/uL (4.3-11.0)
[2018-11-22 07:49] LABS: CALCIUM, SERUM 8.9 mg/dL (8.5-10.1); CREATININE 0.8 mg/dL (0.6-1.3); PHOSPHORUS 3.5 mg/dL (2.5-4.9)
[2018-11-22] MEDS: LEVOTHYROXINE SODIUM 25 MCG TABLET PO SCH (07:51)
[2018-11-22 08:16] VITALS: BP 120/75
[2018-11-22] MEDS: CHOLECALCIFEROL 1,000 UNIT TABLET (VIT D3) PO SCH (08:52)
[2018-11-22] MEDS: ESCITALOPRAM OXALATE (10 MG) 10 MG TABLET PO SCH (08:52)
[2018-11-22] MEDS: MULTIVITAMINS,THERAGRAN 1 UDTAB TABLET PO SCH (08:52)
[2018-11-22] MEDS: PREGABALIN 25 MG CAPSULE PO SCH ×2 (08:52→17:23)
[2018-11-22] MEDS: ALPRAZOLAM 1 MG TABLET PO SCH ×2 (08:53→17:23)
[2018-11-22] MEDS: CALCIUM CARB 250MG /VITAMIN D 1 UDTAB PO SCH ×2 (08:53→17:23)
[2018-11-22] MEDS: BACLOFEN (10 MG) 10 MG TABLET PO SCH ×3 (08:53→17:22)
[2018-11-22] MEDS: APIXABAN 5 MG TABLET PO SCH ×2 (08:53→17:24)
[2018-11-22] MEDS: GABAPENTIN 300 MG CAPSULE PO SCH ×3 (09:07→17:22)
[2018-11-22] MEDS: HYDROCODONE/APAP 5/325MG 1 EACH TABLET PO PRN ×2 (09:41→15:35)
[2018-11-22] MEDS ORDERED: GABA300C PO (13:28)
--- NOTE | 2018-11-22 18:20 | NUR ---
RN MS NOTES PT IN BED, AWAKE, ALERT AND ORIENTED, PAIN MEDICATION GIVEN FOR PAIN MANAGEMENT, NOT IN DISTRESS, CALL LIGHT WITHIN REACH, SEEN BY GAIL MURILLO AND DR. STRANGE TODAY, DISCHARGE ORDER GIVEN, PT INFORMED, DISCHARGE AND MEDICATION INSTRUCTIONS PROVIDED TO PT, VERBALIZED UNDERSTANDING, BELONGINGS ACCOUNTED FOR, REPORT GIVEN TO GISELLE OF [facility], PICKED UP BY 2 AMBULANCE PERSONNEL, LEFT VIA GUERNEY IN STABLE CONDITION.
== END 2018-11-22 18:22 | DRG 347 ==
LOC: ER 23:35 → MED 11-19 06:47
PROVIDERS: ATTEND Registered Nurse
DX: M54.16 Radiculopathy, lumbar region (principal); K76.0 Fatty (change of) liver, not elsewhere classified; I82.512 Chronic embolism and thrombosis of left femoral vein; E03.9 Hypothyroidism, unspecified; I10 Essential (primary) hypertension; F41.9 Anxiety disorder, unspecified; G89.29 Other chronic pain; M79.7 Fibromyalgia; E78.5 Hyperlipidemia, unspecified; K59.00 Constipation, unspecified; Z79.01 Long term (current) use of anticoagulants; K80.20 Calculus of gallbladder without cholecystitis without obstruction; I87.2 Venous insufficiency (chronic) (peripheral); G62.9 Polyneuropathy, unspecified; R00.1 Bradycardia, unspecified; M21.372 Foot drop, left foot; M21.371 Foot drop, right foot; I82.532 Chronic embolism and thrombosis of left popliteal vein
CPT/HCPCS: 36415; 71045-TC; 72148-TC; 74175-TC; 80048-TC; 80053-TC; 80076-TC; 83735-TC; 83880; 84100-TC; 84484-TC; 85025-TC; 85378-TC; 85730-TC; 87081-TC; 93970-TC; 97112-TC; 97530-TC; G0378; J1170; J1650; J7030; J7050; Q9967

== ENCOUNTER 2019-03-12 23:56 | Emergency (ER) | payer MEDICARE, OTHER ==
[~2019-03-12] VITALS: Ht 160 cm; Wt 76.7 kg
[~2019-03-12 23:56] MED LIST changes: +ALBU0.633 IH; +APIX5TAB PO; +BACL5TAB PO; +BISA-79 PO; +CALC1TAB91 PO; +CHOL200026 PO; +ESCI20TA PO; +FENO145T GT; +GABA-534 PO; +GABA300C PO; -HYDR-4354 PO; +IBUP-1953 PO; +LEVO25TA7 PO; -MELA1TAB15 PO; +MELA3TAB PO; +MULT-447 PO; +NALO4SPR NS; +OXYC-128 PO; +PREG50CA PO; +QUIN1TAB3 PO; +SENN-18 PO
[2019-03-13 00:48] VITALS: BP 115/75
--- NOTE | 2019-03-13 00:49 | NUR ---
PT BIB [facility] C/O CHRONIC LLE PAIN WITH NUMBNESS. PT AOX4. NAD NOTED. RESP EVEN AND UNLABORED. PT DENIES PAIN AT THIS TIME. PT ON MONITOR IN BED 10. WILL CONTINUE TO MONITOR.
--- NOTE | 2019-03-13 02:52 | NUR ---
CALLED [facility] FOR TRANSPORTATION. ETA [id number] TRIP NUMBER [id number]
== END 2019-03-13 03:43 | disposition home or self-care (01) ==
LOC: ER 03-13
DX: I82.402 Acute embolism and thrombosis of unspecified deep veins of left lower extremity (principal); I10 Essential (primary) hypertension; M79.7 Fibromyalgia; F41.9 Anxiety disorder, unspecified; F32.9 Major depressive disorder, single episode, unspecified; G62.9 Polyneuropathy, unspecified; E03.9 Hypothyroidism, unspecified; E78.00 Pure hypercholesterolemia, unspecified; Z98.890 Other specified postprocedural states; Z79.899 Other long term (current) drug therapy
CPT/HCPCS: 93970-TC